=== PATIENT | male | born 1965 | race Caucasian/White ===

== ENCOUNTER 2024-03-07 17:05 | Emergency (ER) | payer MEDICAID, OTHER ==
[~2024-03-07] VITALS: Ht 167.6 cm; Wt 90.7 kg
[~2024-03-07 17:05] MED LIST: TRIA1TAB5 PO
[2024-03-07 19:05] VITALS: BP 118/80; TEMP 98; O2SAT 99
== END 2024-03-07 19:05 | disposition home or self-care (01) ==
LOC: ER 17:09
DX: S93.491A Sprain of other ligament of right ankle, initial encounter (principal); I10 Essential (primary) hypertension; E11.9 Type 2 diabetes mellitus without complications; F17.200 Nicotine dependence, unspecified, uncomplicated; Z79.899 Other long term (current) drug therapy; X50.1XXA Overexertion from prolonged static or awkward postures, initial encounter; Y93.89 Activity, other specified; Y92.89 Other specified places as the place of occurrence of the external cause; Y99.8 Other external cause status
CPT/HCPCS: 73600; A4606; A4663

== ENCOUNTER 2025-01-19 10:28 | Emergency (ER) | payer OTHER ==
[~2025-01-19] VITALS: Ht 167.6 cm; Wt 95.3 kg
[2025-01-19] MEDS ORDERED: BENA40TA67 PO (11:51)
[2025-01-19] MEDS ORDERED: METF-494 PO (11:51)
[2025-01-19] MEDS ORDERED: CHLO25TA2 PO (11:51)
[2025-01-19] MEDS ORDERED: ATOR20TA27 PO (11:51)
[2025-01-19] MEDS ORDERED: ASPI-1094 PO (11:51)
[2025-01-19] MEDS ORDERED: BIMA2.5D5 EACHEYE (11:51)
[2025-01-19] MEDS ORDERED: EMPA10TA PO (11:51)
[2025-01-19] MEDS ORDERED: KETOROLAC TROMETHAMINE 30 MG INJ ONE (18:54)
[2025-01-19] MEDS: KETOROLAC TROMETHAMINE 30 MG INJ IM ONE (18:59)
[2025-01-19 19:44] LABS: *BILIRUBIN,URIN NEGATIVE (NEGATIVE); *BLOOD, URINE NEGATIVE (NEGATIVE); *CLARITY,URINE CLEAR (CLEAR); *COLOR,URINE YELLOW (YELLOW); *KETONES,URINE NEGATIVE (NEGATIVE); *PROTEIN,URINE NEGATIVE (NEGATIVE); *UROBILINOGEN,URINE 0.2 E.U./dl (NORMAL); LEUKOCYTE ESTERASE ,URINE NEGATIVE (NEGATIVE); NITRITE, URINE NEGATIVE (NEGATIVE)
[2025-01-19 20:12] LABS: UGLUCOSE 2+ (NEGATIVE)
[2025-01-19 20:29] LABS: *AMPHETAMINE, URINE POSITIVE (NEGATIVE); *BARBITURATE, URINE NEGATIVE (NEGATIVE); *BENZODIAZEPINE, URINE NEGATIVE (NEGATIVE); *CANNABINOID, URINE NEGATIVE (NEGATIVE); *COCCAINE, URINE NEGATIVE (NEGATIVE); *OPIATE, URINE NEGATIVE (NEGATIVE); *PHENCYCLIDINE SCREEN,URINE NEGATIVE (NEGATIVE); FENTANYL, URINE NEGATIVE (NEGATIVE)
[2025-01-19] MEDS ORDERED: SULF1TAB48 PO (21:27)
[2025-01-19] MEDS ORDERED: CEPH500T PO (21:27)
[2025-01-19 22:32] VITALS: BP 120/77; TEMP 98.4; O2SAT 99
[2025-01-19 23:30] LABS: BACTERIA,URINE NONE SEEN /HPF (NONE SEEN); RBC,URINE 0-3 /HPF (0-3); SQUAMOUS EPITHELIAL CELL,UR FEW /HPF (NONE SEEN); WBC,URINE NONE SEEN /HPF (0-3)
== END 2025-01-19 22:35 | disposition home or self-care (01) ==
LOC: ER 10:28
DX: L03.116 Cellulitis of left lower limb (principal); R22.42 Localized swelling, mass and lump, left lower limb; M25.562 Pain in left knee; E11.9 Type 2 diabetes mellitus without complications; F17.200 Nicotine dependence, unspecified, uncomplicated; I11.9 Hypertensive heart disease without heart failure; Z79.82 Long term (current) use of aspirin; Z79.84 Long term (current) use of oral hypoglycemic drugs; Z79.899 Other long term (current) drug therapy; Z98.890 Other specified postprocedural states; Z88.7 Allergy status to serum and vaccine
CPT/HCPCS: 29505; 73700; 80307; 81001; 93971; 96372; 99285; J1885; A4606; A4663

== ENCOUNTER 2025-07-09 18:57 | Emergency (ER) | payer OTHER ==
[~2025-07-09] VITALS: Ht 167.6 cm; Wt 104.3 kg
[~2025-07-09 18:57] MED LIST changes: +ASPI-1094 PO; +ATOR20TA27 PO; +BENA40TA67 PO; +BIMA2.5D5 EACHEYE; +CEPH500T PO; +CHLO25TA2 PO; +EMPA10TA PO; +METF-494 PO; +SULF1TAB48 PO
[2025-07-09 19:10] VITALS: BP 122/84
[2025-07-09] MEDS: ACETAMINOPHEN 500 MG TABLET PO ONE (19:50)
[2025-07-09] MEDS ORDERED: PIPERACILLIN SODIUM/TAZOBACTAM 4.5 G in IV DEXTROSE 5% 50 ML IV ONE (20:00)
[2025-07-09 20:04] LABS: CREATININE 1.6 mg/dL (0.6-1.3); SODIUM SERUM 138.0 mmol/L (136-145); UREA NITROGEN, BLOOD 36.0 mg/dL (7-18)
[2025-07-09 20:06] LABS: PLATELET COUNT (AUTO) 297 K/uL (152-348); RED BLOOD CELL COUNT(AUTO) 4.92 MIL/uL (4.06-5.63); RED CELL DISTRIBUTION WIDTH 15.6 % (12.1-16.2); WHITE BLOOD COUNT (AUTO) 8.8 K/uL (3.6-10.2)
[2025-07-09 22:13] VITALS: TEMP 98
[2025-07-09] MEDS ORDERED: MELO7.5T12 PO (22:14)
[2025-07-09 22:33] VITALS: BP 126/78; O2SAT 99
== END 2025-07-09 22:37 | disposition home or self-care (01) ==
LOC: ER 19:00
DX: M25.561 Pain in right knee (principal); M17.11 Unilateral primary osteoarthritis, right knee; E11.9 Type 2 diabetes mellitus without complications; E78.5 Hyperlipidemia, unspecified; F17.200 Nicotine dependence, unspecified, uncomplicated; I10 Essential (primary) hypertension; H40.9 Unspecified glaucoma; Z79.1 Long term (current) use of non-steroidal anti-inflammatories (NSAID); Z79.82 Long term (current) use of aspirin; Z79.84 Long term (current) use of oral hypoglycemic drugs; Z79.899 Other long term (current) drug therapy; Z88.7 Allergy status to serum and vaccine; Z98.890 Other specified postprocedural states; Z87.2 Personal history of diseases of the skin and subcutaneous tissue
CPT/HCPCS: 36415; 73560; 85025; 87205; A4606; A4663; A9150